=== PATIENT | female | born 1970 | race Caucasian/White ===

== ENCOUNTER → 2024-08-03 19:56 | Outpatient (REF) | payer OTHER, SELFPAY | LOC: MRI 19:56 | PROVIDERS: ATTENDING PHYSICIAN Otolaryngology; FAMILY PHYSICIAN Nurse Practitioner Family | DX: H93.A1 Pulsatile tinnitus, right ear (principal) | CPT/HCPCS: 70553; A9575 ==

== ENCOUNTER → 2025-04-19 12:38 | Outpatient (REF) | payer SELFPAY | LOC: HWRAD 12:38 | PROVIDERS: ATTENDING PHYSICIAN Internal Medicine Cardiovascular Disease; FAMILY PHYSICIAN Physician Assistant | DX: E78.5 Hyperlipidemia, unspecified (principal); Z82.49 Family history of ischemic heart disease and other diseases of the circulatory system | CPT/HCPCS: 75571 ==